=== PATIENT | male | born 2000 | race African-American/Black ===

== ENCOUNTER 2022-01-24 04:04 | Emergency (ER) | payer OTHER ==
[2022-01-24 04:36] LABS: #Basophils 0.1 thou/uL (0.0-0.2); #Eosinphils 0.2 thou/uL (0.0-0.7); #Lymphocytes 1.5 thou/uL (1.20-3.40); #Monocytes 0.5 thou/uL (0.11-0.59); #Neutrophils 2.1 thou/uL (1.40-6.50); %Basophils 1.6 % (0.0-1.0); %Eosinophils 3.9 % (0.0-10.0); %Lymphocytes 35.2 % (28.0-48.0); %Neutrophils 48.4 % (31.0-61.0); Mean Corpuscular HGB CONC 31.7 g/dL (32.0-36.0); Mean Corpuscular Hemoglobin 31.4 pg (25.0-35.0); Mean Platelet Volume 9.8 fL (7.4-10.4); Platelet Count 202 thou/uL (130-400); RBC Distribution Width 11.6 % (11.5-14.5); Red Blood Cell (RBC) Count 3.84 mill/uL (4.00-5.20); White Blood Cell (WBC) Count 4.3 thou/uL (4.8-10.8)
[2022-01-24 04:49] LABS: ALT (SGPT) 18 U/L (8-55); AST (SGOT) 19 U/L (10-45); Albumin 4.1 g/dL (3.5-5.0); Alkaline Phosphatase 58 U/L (50-130); Anion Gap 13 mmol/L (10-20); BUN (Urea Nitrogen) 9 mg/dL (8.4-21.0); Bilirubin, Total 2.1 mg/dL (0.2-1.2); Calc. Creatinine Clearance 0 mL/min (70-130); Calcium 9.4 mg/dL (7.8-10.44); Carbon Dioxide 26 mmol/L (22-29); Chloride 107 mmol/L (98-107); Estimated GFR 130; Globulin 2.9 g/dL (2.4-3.5); Glucose 93 mg/dL (70-105); Potassium 3.8 mmol/L (3.5-5.1); Sodium 142 mmol/L (136-145)
== END 2022-01-24 05:02 ==
LOC: NAV ERS 04:04
DX: R07.2 Precordial pain (principal)
CPT/HCPCS: 36415; 71045; 80053; 84484; 85025; 93005; 94760